=== PATIENT | female | born 1995 | race Caucasian/White ===

== ENCOUNTER 2018-05-15 08:09 | Inpatient (IN) | payer OTHER ==
[2018-04-30 13:16] VITALS: BMI 19.9
[~2018-05-15 08:09] MED LIST: CEFAZOLIN 2 GM/D5W 2 GM/50 ML ML IVPB ONE; TRANEXAMIC ACID 1000 MG/10 ML VIAL IVPUSH ONE; VANCOMYCIN 750 MG in DEXTROSE 5%-WATER - 250 ML IVPB ONE
[2018-05-15] MEDS ORDERED: CELECOXIB 200 MG CAPSULE ONE (09:00)
[2018-05-15] MEDS ORDERED: oxyCODONE HCL 10 MG SUSTAINED ACTING TABLET ONE (09:01)
[2018-05-15] MEDS: oxyCODONE HCL 10 MG SUSTAINED ACTING TABLET PO ONE ×2 (09:15→17:29)
[2018-05-15] MEDS: CELECOXIB 200 MG CAPSULE PO ONE ×2 (09:15→17:29)
[2018-05-15] MEDS ORDERED: EPINEPHrine/PF 1 MG/1 ML (1:1,000) AMPULE ONE (09:25)
[2018-05-15] MEDS ORDERED: DEXAMETHASONE SOD PHOSPHATE/PF 10 MG/ML SDV ONE (09:25)
[2018-05-15] MEDS ORDERED: BUPIVACAINE HCL/PF (5 MG/ML) 30 ML VIAL IJ ONE (09:26)
[2018-05-15] MEDS ORDERED: MIDAZOLAM HCL 2 MG/2 ML SINGLE DOSE VIAL ONE ×2 (09:26→13:43)
[2018-05-15] MEDS ORDERED: VANCOMYCIN 1,000 MG VIAL (RESTRICTED TO ID ONLY) ONE (10:01)
[2018-05-15] MEDS ORDERED: BUPIVACAINE HCL/PF 0.5% (5MG/ML) 10 ML VIAL ONE (11:17)
[2018-05-15] MEDS ORDERED: LIDOCAINE HCL 1%, 10 MG/ML (20ML VIAL) ONE (11:21)
[2018-05-15] MEDS ORDERED: ceFAZolin SODIUM 1 GM VIAL ONE (11:25)
[2018-05-15] MEDS ORDERED: HYDROCORTISONE SOD SUCCINATE 2 ML ONE (11:27)
[2018-05-15] MEDS ORDERED: PROPOFOL 20 ML ONE ×6 (11:54→15:33)
[2018-05-15] MEDS ORDERED: ePHEDrine SULFATE 50 MG/1 ML AMPULE ONE (12:04)
[2018-05-15] MEDS ORDERED: BENZOIN/ALOE VERA/STORAX/TOLU 58 ML BOTTLE ONE (13:50)
[2018-05-15] MEDS ORDERED: BSS (NA/CA/MG/K) BALANCED SALT SOLUTION OPHTH SOLN 15 ML BOTTLE ONE (14:29)
[2018-05-15] MEDS ORDERED: ONDANSETRON 4 MG/2 ML VIAL IVPUSH PRN ×2 (14:51→16:40)
[2018-05-15] MEDS ORDERED: LACTATED RINGERS SOLUTION 1,000 ML IV SCH ×2 (15:00→16:45)
--- NOTE | 2018-05-15 16:37 | OP ---
Operative Note - Note: Operative Date: 05/15/18 Pre-Operative Diagnosis: End stage arthritis bilateral hips. Operation: 1. Bilateral total hip replacements. 2. Bilateral percutaneous adductor muscle releases. Implants: [place]. Left Hip: Cup - Tritanium, 48mm, Cluster. Poly - 28mm, neutral. Stem - Accolade II, #2, 127 deg NSA (high offset). Head - Delta Ceramic/Biolox, 28mm, std. Right Hip: Cup - Tritanium, 48mm, Cluster. Poly - 28mm, neutral. Stem - Accolade II, #3, 127 deg NSA (high offset). Head - Delta Ceramic/Biolox, 28mm diameter, -4mm length. Post-Operative Diagnosis: Same as Pre-op Surgeon: Scotty Flores Sewing Machine Attachment Tester: Rosalino Flores Anesthesiologist/CONNIE SCRATCHER: Lonnie Ruvalcaba Anesthesia: Spinal Specimens Removed: Bilateral femoral heads Estimated Blood Loss (mls): 250 Fluid Volume Replaced (mls): 2,000 Operative Report Dictated: Yes
[2018-05-15] MEDS ORDERED: ONDANSETRON 4 MG/2 ML VIAL ONE (16:38)
[2018-05-15] MEDS ORDERED: MAGNESIUM HYDROX 2400MG/30ML ORAL SUSPENSION 30 ML CUP PO PRN (16:40)
[2018-05-15] MEDS ORDERED: MAG HYDROX/AL HYDROX/SIMETH 30 ML UNIT-DOSE CUP PO PRN (16:40)
--- NOTE | 2018-05-15 16:40 | PN ---
Progress Note (short form) - Note Progress Note: 22F s/p bilateral DALE & bilateral percutaneous adductor muscle releases POD #0. -Pain control. -DVT PPx: -Chemical: ASA 81mg PO BID x 6 weeks. -Mechanical: SCD's, EDYTA's. -Incentive spirometry. -PT/OT/Rehab, OOB. -WBAT B/L LE. -(+) Hip abduction pillow. -Maintain hip precautions. -f/u AM labs. -d/c Chew catheter at midnight; f/u trial of void. -Diet as tolerated. -Care per medical hospitalist team. -Discharge planning: f/u [facility] [place] Office 05/23/2018; call for appointment: . -Will follow. Scotty Flores MD (Orthopaedic Surgery).
[2018-05-15] MEDS ORDERED: ONDANSETRON 4 MG/2 ML VIAL IVPUSH ONE (16:46)
[2018-05-15] MEDS ORDERED: ACETAMINOPHEN 325 MG TABLET (FP) ONE (17:01)
[2018-05-15] MEDS ORDERED: ACETAMINOPHEN 325 MG TABLET (FP) PO ONE (17:20)
[2018-05-15] MEDS: ACETAMINOPHEN 325 MG TABLET (FP) PO SCH ×2 (17:32→22:46)
--- NOTE | 2018-05-15 19:03 | OP ---
DATE OF OPERATION: 05/15/2018 OPERATION: Bilateral total hip replacement. DIAGNOSIS: End-stage arthritis, bilateral hips. ESTIMATED BLOOD LOSS: 250 mL. FLUID INTAKE: 2 L crystalloid. URINE OUTPUT: 600 mL. ADDITIONAL PROCEDURE PERFORMED: Bilateral percutaneous adductor muscle tenotomy. IMPLANTS USED: [place] left side cup Tritanium cluster 48 mm, polyethylene liner 28 mm neutral, stem Accolade size number 2, 127-degree neck shaft angle (high offset), head 28-mm standard delta ceramic/Biolox, right side cup Tritanium cluster 48 mm, polyethylene liner 28 mm neutral, stem Accolade 2 size number 3, 127-degree neck shaft angle high offset, head size 28 mm ceramic -4 mm length. MD JENNIFER Noel/[id number]
[2018-05-15] MEDS: oxyCODONE HCL 10 MG SUSTAINED ACTING TABLET PO SCH (21:31)
[2018-05-15] MEDS: ASPIRIN COATED 81 MG TABLET.EC PO SCH (21:32)
[2018-05-15] MEDS: SENNOSIDES/DOCUSATE COMBO (SENNA PLUS) TABLET (UD) PO SCH (21:32)
[2018-05-15] MEDS: CEFAZOLIN 1 GM/D5W 1 GM/50 ML BAG IVPB SCH (22:46)
[2018-05-15] MEDS: oxyCODONE HCL 5 MG TABLET PO PRN (23:36)
[2018-05-16] MEDS ORDERED: MELATONIN 5 MG TABLETS PO ONE (00:22)
[2018-05-16] MEDS: ACETAMINOPHEN 325 MG TABLET (FP) PO SCH ×4 (05:27→22:44)
[2018-05-16] MEDS ORDERED: LACTATED RINGERS SOLUTION 1,000 ML IV SCH (06:00)
[2018-05-16] MEDS: CEFAZOLIN 1 GM/D5W 1 GM/50 ML BAG IVPB SCH (06:03)
--- NOTE | 2018-05-16 07:40 | CONSULT ---
Consultation: REQUESTING PROVIDER: Dr Flores CONSULT REQUEST: We have been asked to medically evaluate this patient for medical management. HISTORY OF PRESENT ILLNESS: Patient Is a 22-year-old female with a past medical history Of juvenile rheumatoid arthritis ( polyarticular) and iron deficency anemia. She is followed by rheumatology Dr. Charlton at [facility]. Patient is status post bilateral hip replacements, Dr. Flores, spinal antesthesia. REVIEW OF SYSTEMS: CONSTITUTIONAL: Absent: fever, chills, diaphoresis, generalized weakness, malaise, loss of appetite, weight change HEENT: Absent: rhinorrhea, nasal congestion, throat pain, throat swelling, difficulty swallowing, mouth swelling, ear pain, eye pain, visual changes CARDIOVASCULAR: Absent: chest pain, syncope, palpitations, irregular heart rate, lightheadedness , peripheral edema RESPIRATORY: Absent: cough, shortness of breath, dyspnea with exertion, orthopnea, wheezing, stridor, hemoptysis GASTROINTESTINAL: Absent: abdominal pain, abdominal distension, nausea, vomiting, diarrhea, constipation, melena, hematochezia GENITOURINARY: Absent: dysuria, frequency, urgency, hesitancy, hematuria, flank pain, genital pain MUSCULOSKELETAL: Present: billateral hip pain Absent: myalgia, arthralgia, joint swelling, back pain, neck pain SKIN: Absent: rash, itching, pallor HEMATOLOGIC/IMMUNOLOGIC: Absent: easy bleeding, easy bruising, lymphadenopathy, frequent infections ENDOCRINE: Absent: unexplained weight gain, unexplained weight loss, heat intolerance, cold intolerance NEUROLOGIC: Absent: headache, focal weakness or paresthesias, dizziness, unsteady gait, seizure, mental status changes, bladder or bowel incontinence PSYCHIATRIC: Absent: anxiety, depression, suicidal or homicidal ideation, hallucinations. PHYSICAL EXAMINATION Vital Signs - 24 hr 05/15/18 05/15/18 05/15/18 08:28 08:43 08:44 Temperature 98.6 F 98.6 F Pulse Rate 74 74 Respiratory 18 18 Rate Blood Pressure 111/64 111/64 O2 Sat by Pulse 98 Oximetry (%) 05/15/18 05/15/18 05/15/18 16:29 16:34 16:39 Temperature 97.7 F Pulse Rate 73 73 73 Respiratory 16 16 16 Rate Blood Pressure 111/62 106/48 106/48 O2 Sat by Pulse 100 100 100 Oximetry (%) 06/05/15/18 05/15/18 16:44 16:50 17:05 Temperature Pulse Rate 75 85 60 Respiratory 16 16 16 Rate Blood Pressure 106/56 114/62 94/43 O2 Sat by Pulse 100 100 100 Oximetry (%) 05/15/18 05/15/18 05/15/18 17:20 17:35 18:16 Temperature 97.7 F 97.9 F Pulse Rate 60 76 69 Respiratory 16 16 17 Rate Blood Pressure 91/50 95/52 91/52 O2 Sat by Pulse 100 100 Oximetry (%) 05/15/18 05/15/18 05/16/18 20:48 22:00 06:00 Temperature 98.0 F 98.2 F Pulse Rate 95 H 71 Respiratory 17 17 18 Rate Blood Pressure 96/51 95/48 O2 Sat by Pulse 100 100 100 Oximetry (%) GENERAL: Awake, alert, and fully oriented, in no acute distress. HEAD: Normal with no signs of trauma. EYES: Pupils equal, round and reactive to light, extraocular movements intact, sclera anicteric, conjunctiva clear. No lid lag. EARS, NOSE, THROAT: Ears normal, nares patent, oropharynx clear without exudates. Moist mucous membranes. NECK: Normal range of motion, supple without lymphadenopathy, JVD, or masses. LUNGS: Breath sounds equal, clear to auscultation bilaterally. No wheezes, and no crackles. No accessory muscle use. HEART: Regular rate and rhythm, normal S1 and S2 without murmur, rub or gallop. ABDOMEN: Soft, nontender, not distended, normoactive bowel sounds, no guarding, no rebound, no masses. No hepatomegaly or splenomegaly. MUSCULOSKELETAL: Normal range of motion at all joints. No bony deformities or tenderness. No CVA tenderness. UPPER EXTREMITIES: 2+ pulses, warm, well-perfused. No cyanosis. No clubbing. Cap refill <2 seconds. No peripheral edema. LOWER EXTREMITIES: 2+ pulses, warm, well-perfused. No calf tenderness. No peripheral edema. dressing noted to bilateral lateral hips, CDI, EDYTA/SCD, less than 3 second capilary refill, +3 pedal pulse NEUROLOGICAL: Cranial nerves II-XII intact. Normal speech. ambulatory with physical therapy with walker. PSYCHIATRIC: Cooperative. Good eye contact. Appropriate mood and affect. SKIN: Warm, dry, normal turgor, no rashes or lesions noted. Laboratory Results - last 24 hr 05/15/18 05/15/18 05/15/18 08:38 09:06 09:20 Urine HCG, Qual Negative Blood Type O POSITIVE O POSITIVE Antibody Screen Negative Active Medications Generic Name Dose Route Start Last Admin Trade Name Freq PRN Reason Stop Dose Admin Acetaminophen 650 mg 05/15/18 16:45 05/16/18 05:27 Tylenol - PO 05/18/18 16:44 650 mg Q6H JAMESON Administration Al Hydroxide/Mg Hydroxide 30 ml 05/15/18 16:40 Mylanta Oral Suspension - PO Q4H PRN DYSPEPSIA Aspirin 81 mg 05/15/18 22:00 05/15/18 21:32 Ecotrin - PO 81 mg BID JAMESON Administration Fentanyl 50 mcg 05/15/18 14:51 Sublimaze Injection - IVPUSH [id number] PRN PAIN-PACU ORDER X 4 DOSES ONLY Lactated Ringer's 1,000 mls @ 125 mls/hr 05/16/18 06:00 05/16/18 06:03 Lactated Ringers Solution IV 125 mls/hr ASDIR JAMESON Administration Magnesium Hydroxide 30 ml 05/15/18 16:40 Milk Of Magnesia - PO PRN PRN CONSTIPATION Ondansetron HCl 4 mg 05/15/18 14:51 Zofran Injection IVPUSH Q6H PRN NAUSEA AND/OR VOMITING Ondansetron HCl 4 mg 05/15/18 16:40 Zofran Injection IVPUSH Q6H PRN NAUSEA Oxycodone HCl 5 mg 05/15/18 14:51 05/15/18 23:36 Roxicodone - PO 5 mg Q3H PRN Administration PAIN LEVEL 1-5 Oxycodone HCl 10 mg 05/15/18 14:51 Roxicodone - PO Q3H PRN PAIN LEVEL 6-10 Oxycodone HCl 10 mg 05/15/18 22:00 05/15/18 21:31 Oxycontin - PO 05/18/18 14:52 10 mg BID JAMESON Administration Pantoprazole Sodium 40 mg 05/16/18 10:00 Protonix - PO DAILY [facility] Prednisone 5 mg 05/16/18 10:00 Deltasone - PO DAILY [facility] Senna/Docusate Sodium 1 tablet 05/15/18 22:00 05/15/18 21:32 Pericolace - PO 1 tablet BID JAMESON Administration ASSESSMENT/PLAN: 1) MS Bilateral hip replacement, postop day 1 - Physical therapy As per orthopedist. - When necessary pain medication - Incentive spirometry 2) rheumatoid arthritis - continue home dose prednisone - She will require outpatient follow-up with private research animal attendant Dr Charlton 3) Iron deficiency anemia - Preoperative hemoglobin 9.4 hemoglobin this am 7.6 -discussed ith Dr. Flores will give 2 units of PRBCs repeat hemoglobin at 1800 hrs. - increase iron supplement to 325mg bid Dispo: We will continue to follow the patient. Thank you for this consultative opportunity. Visit type - Emergency Visit Emergency Visit: No - New Patient This patient is new to me today: Yes Date on this admission: 05/22/18 - Critical Care Critical Care patient: No
[2018-05-16 08:57] LABS: HEMATOCRIT 24.4 % (32.4-45.2); HEMOGLOBIN 7.6 GM/dl (10.7-15.3); MCH 21.2 pg (25.7-33.7); MEAN CELL VOLUME 68.4 fl (80-96); MEAN PLT VOLUME 8.4 fl (7.5-11.1); PLATELET COUNT 307 K/MM3 (134-434); RBC 3.57 M/mm3 (3.60-5.2); RDW 21.1 % (11.6-15.6); WHITE BLOOD COUNT 7.7 K/mm3 (4.0-10.8)
[2018-05-16 09:06] LABS: ANION GAP 7 (8-16); BLOOD UREA NITROGEN 12 mg/dl (7-18); CALCIUM 8.5 mg/dl (8.4-10.2); CHLORIDE 105 mmol/L (98-107); CO2 25 mmol/L (22-28); GLUCOSE,RANDOM 105 mg/dl (74-106); POTASSIUM 3.7 mmol/L (3.5-5.1); SODIUM 137 mmol/L (136-145)
[2018-05-16 09:07] LABS: CREATININE < 0.8 mg/dl (0.6-1.3)
[2018-05-16] MEDS: predniSONE 5 MG TABLET (UD) PO SCH (09:25)
[2018-05-16] MEDS: ASPIRIN COATED 81 MG TABLET.EC PO SCH ×2 (09:27→21:24)
[2018-05-16] MEDS: oxyCODONE HCL 10 MG SUSTAINED ACTING TABLET PO SCH ×2 (09:27→21:24)
[2018-05-16] MEDS: SENNOSIDES/DOCUSATE COMBO (SENNA PLUS) TABLET (UD) PO SCH ×2 (09:28→21:25)
[2018-05-16] MEDS: PANTOPRAZOLE 40 MG TABLET (FP) PO SCH (09:28)
[2018-05-16] MEDS: FERROUS SO4 325 MG TABLET (FP) PO SCH ×2 (10:29→21:24)
[2018-05-16] MEDS: oxyCODONE HCL 5 MG TABLET PO PRN ×2 (12:33→20:24)
[2018-05-16] MEDS: MELATONIN 5 MG TABLETS PO PRN (22:50)
[2018-05-17] MEDS: ACETAMINOPHEN 325 MG TABLET (FP) PO SCH ×4 (04:29→22:48)
[2018-05-17 08:46] LABS: BASO % 0.3 % (0-2.0); EOS % 0.3 % (0-4.5); HEMATOCRIT 29.1 % (32.4-45.2); HEMOGLOBIN 9.7 GM/dl (10.7-15.3); LYMPH % 11.3 % (8-40); MCHC 33.3 g/dl (32.0-36.0); MEAN CELL VOLUME 72.2 fl (80-96); MONO % 7.2 % (3.8-10.2); NEUT % 80.9 % (42.8-82.8); PLATELET COUNT 296 K/MM3 (134-434); RBC 4.03 M/mm3 (3.60-5.2); RDW 21.2 % (11.6-15.6); WHITE BLOOD COUNT 10.4 K/mm3 (4.0-10.8)
[2018-05-17 09:15] LABS: ANION GAP 4 (8-16); BLOOD UREA NITROGEN 8 mg/dl (7-18); CHLORIDE 105 mmol/L (98-107); CO2 25 mmol/L (22-28); CREATININE 0.4 mg/dl (0.6-1.3); GLUCOSE,RANDOM 122 mg/dl (74-106); POTASSIUM 3.3 mmol/L (3.5-5.1); SODIUM 134 mmol/L (136-145)
[2018-05-17] MEDS: ASPIRIN COATED 81 MG TABLET.EC PO SCH ×2 (09:16→21:34)
[2018-05-17] MEDS: oxyCODONE HCL 10 MG SUSTAINED ACTING TABLET PO SCH ×2 (09:16→21:34)
[2018-05-17] MEDS: SENNOSIDES/DOCUSATE COMBO (SENNA PLUS) TABLET (UD) PO SCH ×2 (09:16→21:34)
[2018-05-17] MEDS: PANTOPRAZOLE 40 MG TABLET (FP) PO SCH (09:16)
[2018-05-17] MEDS: predniSONE 5 MG TABLET (UD) PO SCH (09:16)
[2018-05-17] MEDS: FERROUS SO4 325 MG TABLET (FP) PO SCH ×2 (09:16→21:34)
[2018-05-17] MEDS ORDERED: POTASSIUM CHLORIDE TABS 20 MEQ TABLET.ER (FP) PO ONE (09:34)
--- NOTE | 2018-05-17 09:53 | DS ---
Physical Exam: SUBJECTIVE: Patient seen and examined, Patient ambulated independently with physical therapy, reports minimal pain to bilateral lower extremities OBJECTIVE: Patient Is a 22-year-old female with a past medical history Of juvenile rheumatoid arthritis ( polyarticular) and iron deficency anemia. She is followed by rheumatology Dr. Charlton at [facility]. Patient is status post bilateral hip replacements, Dr. Flores, spinal anaesthesia. Vital Signs Period Temp Pulse Resp BP Sys/Dickens Pulse Ox Last 24 Hr 97.5 F-98.6 F 56-86 16-19 95-105/44-56 99-100 PHYSICAL EXAM GENERAL: Awake, alert, and fully oriented, in no acute distress. HEAD: Normal with no signs of trauma. EYES: Pupils equal, round and reactive to light, extraocular movements intact, sclera anicteric, conjunctiva clear. No lid lag. EARS, NOSE, THROAT: Ears normal, nares patent, oropharynx clear without exudates. Moist mucous membranes. NECK: Normal range of motion, supple without lymphadenopathy, JVD, or masses. LUNGS: Breath sounds equal, clear to auscultation bilaterally. No wheezes, and no crackles. No accessory muscle use. HEART: Regular rate and rhythm, normal S1 and S2 without murmur, rub or gallop. ABDOMEN: Soft, nontender, not distended, normoactive bowel sounds, no guarding, no rebound, no masses. No hepatomegaly or splenomegaly. MUSCULOSKELETAL: Normal range of motion at all joints. No bony deformities or tenderness. No CVA tenderness. UPPER EXTREMITIES: 2+ pulses, warm, well-perfused. No cyanosis. No clubbing. Cap refill <2 seconds. No peripheral edema. LOWER EXTREMITIES: 2+ pulses, warm, well-perfused. No calf tenderness. No peripheral edema. dressing noted to bilateral lateral hips, CDI, EDYTA/SCD, less than 3 second capilary refill, +3 pedal pulse NEUROLOGICAL: Cranial nerves II-XII intact. Normal speech. ambulatory with physical therapy with walker. PSYCHIATRIC: Cooperative. Good eye contact. Appropriate mood and affect. SKIN: Warm, dry, normal turgor, no rashes or lesions noted. LABS Laboratory Results - last 24 hr 05/15/18 05/17/18 05/17/18 09:20 08:00 08:47 WBC 10.4 D RBC 4.03 Hgb 9.7 L D Hct 29.1 L D MCV 72.2 L MCH 24.0 L MCHC 33.3 RDW 21.2 H Plt Count 296 MPV 10.0 Absolute Neuts (auto) 8.4 Neutrophils % 80.9 Lymphocytes % 11.3 Monocytes % 7.2 Eosinophils % 0.3 Basophils % 0.3 Sodium 134 L Potassium 3.3 L Chloride 105 Carbon Dioxide 25 Anion Gap 4 L BUN 8 D Creatinine 0.4 L D Creat Clearance w eGFR > 60 Random Glucose 122 H Calcium 8.0 L Blood Type O POSITIVE Antibody Screen Negative Crossmatch See Detail HOSPITAL COURSE: Patient was admitted from the OR to medical surgical unit after an elective bilateral hip replacement. Patient the hallway with phycial therapy on post operative day 1. Pain was controlled with both narcotic and nonnarcotic analgesics. Patient has a past medical history of iron deficiency anemia preoperative hemoglobin to be 9.4 on postoperative day 1 patient's hemoglobin was noted to be 7.6. She was noted to have anemia secondary to blood loss, patient was given 2 units of packed red blood cells on postoperative day one repeat hemoglobin is back to baseline 9.7. Patient takes iron supplements daily dosage was increased to twice a day. Patient has a past medical history of rheumatoid arthritis, home dose prednisone was continued. PLAN - transfer to Inpatient short-term rehabilitation Date of Admission:05/15/18 Date of Discharge: 05/17/18 Minutes to complete discharge: 45 Discharge Summary Reason For Visit: BILATERAL OA OF HIPS Condition: Improved - Instructions Diet, Activity, Other Instructions: Post-op Instructions-Total Hip Replacement Call the office for a follow-up appointment in 1 week - Aspirin 81mg twice a for 6 weeks. Pain medication was sent into your pharmacy. Apply Graduated Compression Stockings (TEDs) to both lower extremities- remove daily for hygiene ONLY Apply Sequential Compression Device (SCDs) to both Lower extremities remove for PT and hygiene ONLY Apply cold packs to affected area for 15 minutes every 2 hours. Physical Therapist will come to your home for the first 5 days. You will be set up with outpatient PT at your first post-operative visit. Patient may ambulate as tolerated-encourage self care (at least every 2-3 hours while awake) with walker or cane Maintain (waterproof) dressing to operative wound (will be removed by surgeon at first office visit) Shower with dressing in place-if dressing integrity compromised, remove and apply dry sterile dressing and notify Orthopedist. DO NOT SHOWER unless Orthopedists approves without dressing CONTACT THE OFFICE FOR ANY CHANGE IN YOUR CONDITION (for example-fever greater than 102 degrees,excessive bleeding from operative site, purulent drainage, severe swelling or pain) GO TO THE EMERGENCY ROOM IF THERE IS A MEDICAL EMERGENCY Hip Precautions: * Keep a rolled towel under affected heel while in bed or chair (to keep knee in extension) * Dependent upon approach: * Posterior - do not cross legs; do not sit on low chairs or toilets. * If you have any questions, please do not hesitate to call the office [employer] Reference #: [id number] Referrals: Scotty Flores MD [Staff Physician] - Disposition: [facility] FACILITY - Home Medications Comprehensive Discharge Medication List: Ambulatory Orders Cholecalciferol (Vitamin D3) [Vitamin D3] 1,000 unit PO DAILY 04/30/18 Ferrous Sulfate [Iron] 325 mg PO DAILY 04/30/18 Prednisone 5 mg PO DAILY 04/30/18 Rituximab [Rituxan -] 1 units IV ASDIR 04/30/18 This patient is new to me today: No Emergency Visit: No Critical Care patient: No - Discharge Referral Referred to [facility] No
[2018-05-17] MEDS ORDERED: MAGNESIUM SULFATE IN WATER 2 GM/50 ML IVPB IVPB ONE (10:37)
--- NOTE | 2018-05-17 14:38 | PATH ---
Surgical Pathology Report Patient Name: BRADFORD AMES Med. Rec. #: [id number] /Age/Gender: 1995 (Age: 22) / F Account: [id number] Location: [facility] Taken: 05/15/2018 Received: 05/15/2018 Reported: 05/17/2018 Physicians: Scotty Flores M.D. Specimen(s) Received A: LEFT FEMORAL HEAD B: RIGHT FEMORAL HEAD Clinical History Bilateral osteoarthritis of hips Final Diagnosis A. BONE, FEMORAL HEAD, LEFT, TOTAL HIP REPLACEMENT: BONE WITH DEGENERATIVE JOINT DISEASE. B. BONE, FEMORAL HEAD, RIGHT, TOTAL HIP REPLACEMENT: BONE WITH DEGENERATIVE JOINT DISEASE. Electronically Signed Kassy Ron M.D. Gross Description A. Received in formalin, labeled "left femoral head," is a 3.7 x 3.7 x 3.3 cm. femoral head with a 1.4 cm in length portion of femoral length attached. The margin of resection is smooth. There is a 1.8 cm greatest dimension area of eburnation present. The remaining articular surface is boss-yellow and focally granular. The underlying trabecular bone is yellow and hard. A apprenticeship representative section is submitted in one cassette, following decalcification. B. Received in formalin, labeled "right femoral head," is a 3.6 x 3.6 x 3.4 cm. femoral head with a 1.4 cm length portion of femoral neck attached. The margin of resection is smooth. There is a 4 cm in greatest dimension area of eburnation present. The remaining articular surface is boss-yellow and focally granular. The underlying trabecular bone is yellow and hard. A apprenticeship representative section is submitted in one cassette, following decalcification. 05/16/2018 saudi05/16/2018
[2018-05-17] MEDS: oxyCODONE HCL 5 MG TABLET PO PRN (15:26)
--- NOTE | 2018-05-17 17:51 | PN ---
Progress Note (short form) - Note Progress Note: 22F doing well s/p bilateral DALE & bilateral percutaneous adductor muscle releases POD #2. Pt. received 2U PRBC yesterday d/t post-operative anemia. No acute events overnight. Pain well controlled. Pt. denies overnight history of chest pain, shortness of breath, nausea, vomiting, chills, & sweats. (+) Voiding; (+) Flatus; (-) BM. All labs and vitals reviewed. PE: AAO x 3, NAD. B/L Hips: Dressings C/D/I. NVI distally B/L LE. 22F doing well s/p bilateral DALE & bilateral percutaneous adductor muscle releases POD #2. -Pain control. -DVT PPx: -Chemical: ASA 81mg PO BID x 6 weeks post-op. -Mechanical: SCD's, EDYTA's. -Incentive spirometry. -PT/OT/Rehab, OOB. -WBAT B/L LE. -(+) Hip abduction pillow. -Maintain hip precautions. -Diet as tolerated. -Care per medical hospitalist team. -Discharge planning: f/u [facility] [place] Office 05/23/2018; call for appointment: . -Will follow. Scotty Flores MD (Orthopaedic Surgery).
[2018-05-17] MEDS: MELATONIN 5 MG TABLETS PO PRN (22:47)
[2018-05-18] MEDS: ACETAMINOPHEN 325 MG TABLET (FP) PO SCH ×2 (07:24→10:50)
[2018-05-18] MEDS: oxyCODONE HCL 5 MG TABLET PO PRN (07:25)
[2018-05-18] MEDS: SENNOSIDES/DOCUSATE COMBO (SENNA PLUS) TABLET (UD) PO SCH (09:34)
[2018-05-18] MEDS: FERROUS SO4 325 MG TABLET (FP) PO SCH (09:34)
[2018-05-18] MEDS: predniSONE 5 MG TABLET (UD) PO SCH (09:34)
[2018-05-18] MEDS: oxyCODONE HCL 10 MG SUSTAINED ACTING TABLET PO SCH (09:34)
[2018-05-18] MEDS: ASPIRIN COATED 81 MG TABLET.EC PO SCH (09:34)
[2018-05-18] MEDS: PANTOPRAZOLE 40 MG TABLET (FP) PO SCH (09:34)
[2018-05-18 09:41] VITALS: BP 100/57; PULSE 78; TEMP 98.6
== END 2018-05-18 11:30 | DRG 301 ==
LOC: UNDOADMIN 08:09 → FM/S 08:09
PROVIDERS: ADMIT Orthopaedic Surgery Adult Reconstructive Orthopaedic Surgery; ATTEND Nurse Practitioner Acute Care
PROC: 0SR904Z Replacement of Right Hip Joint with Ceramic on Polyethylene Synthetic Substitute, Open Approach (ICD-10-PCS; 2018-05-15)
PROC: 0SRB04Z Replacement of Left Hip Joint with Ceramic on Polyethylene Synthetic Substitute, Open Approach (ICD-10-PCS; principal; 2018-05-15 12:22)
PROC: 30233N1 Transfusion of Nonautologous Red Blood Cells into Peripheral Vein, Percutaneous Approach (ICD-10-PCS; 2018-05-16)
DX: M08.052 Unspecified juvenile rheumatoid arthritis, left hip (principal); D50.9 Iron deficiency anemia, unspecified; M08.0 Unspecified juvenile rheumatoid arthritis
CPT/HCPCS: 36415; 36430; 36511; 73502-TC-LT-FY; 73502-TC-RT; 80048; 83735; 84703; 85025; 85027; 86850; 86900; 86901; 86922; 88304-TC; 88311-TC; 94760; 97116-GP; 97162-GP; P9038; P9058